=== PATIENT | female | born 2000 | race Caucasian/White ===

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

== ENCOUNTER 2023-03-21 12:43 | Emergency (ER) | payer OTHER, SELFPAY ==
[~2023-03-21] VITALS: Ht 149.9 cm; Wt 74.4 kg
[2023-03-21 14:06] VITALS: BP 116/74; TEMP 98; O2SAT 99
== END 2023-03-21 14:07 | disposition home or self-care (01) ==
LOC: M ED 12:43
DX: F32.A Depression, unspecified (principal)

== ENCOUNTER 2023-03-28 03:27 | Inpatient (IN) | payer BC, SELFPAY ==
[~2023-03-28] VITALS: Ht 149.9 cm; Wt 81.8 kg
[2023-03-28 04:13] LABS: HEMATOCRIT 39.7 % (36.0-47.0); HEMOGLOBIN 13.2 g/dl (12.0-15.5); MEAN CORPUSCULAR HEMOGLOBIN 27.5 pg (27.0-33.0); MEAN CORPUSCULAR HGB CONC 33.2 g/dl (32.0-36.5); MEAN CORPUSCULAR VOLUME 82.7 fl (80.0-96.0); PLATELET COUNT, AUTOMATED 463 10^3/uL (150-450); WHITE BLOOD COUNT 9.6 10^3/uL (4.0-10.0)
[2023-03-28 04:28] LABS: ETHYL ALCOHOL (ETHANOL) < 0.003 % (0.000-0.010)
[2023-03-28 04:30] LABS: SALICYLATE LEVEL < 3.0 MG/DL (<30)
[2023-03-28 04:31] LABS: ALBUMIN 4.1 G/DL (3.2-5.2); ALKALINE PHOSPHATASE 102 U/L (46-116); ALT/SGPT 16 U/L (7.0-40); AST/SGOT 11 U/L (<34); BILIRUBIN,DIRECT 0.1 MG/DL (<0.4); BILIRUBIN,TOTAL 0.3 MG/DL (0.3-1.2); BLOOD UREA NITROGEN 10 MG/DL (9-23); CALCIUM LEVEL 9.4 MG/DL (8.5-10.1); CARBON DIOXIDE LEVEL 26 MMOL/L (20-31); CHLORIDE LEVEL 104 MMOL/L (98-107); CREATININE FOR GFR 0.63 MG/DL (0.55-1.30); GLOMERULAR FILTRATION RATE > 60.0 (>60); GLUCOSE, FASTING 97 MG/DL (60-100); POTASSIUM SERUM 3.7 MMOL/L (3.5-5.1); SODIUM LEVEL 140 MMOL/L (136-145); TOTAL PROTEIN 7.7 G/DL (5.7-8.2)
[2023-03-28 04:33] LABS: THYROID STIMULATING HORMONE 1.976 uIU/ML (0.55-4.78)
[2023-03-28 04:36] LABS: HCG, SERUM QUALITATIVE NEGATIVE (NEGATIVE)
[2023-03-28 04:39] LABS: BARBITURATES URINE NEGATIVE (NEGATIVE); COCAINE METABOLITE URINE NEGATIVE (NEGATIVE)
[2023-03-28 04:40] LABS: AMPHETAMINES LEVEL URINE NEGATIVE (NEGATIVE); BENZODIAZEPINES URINE NEGATIVE (NEGATIVE); CANNABINOIDS URINE NEGATIVE (NEGATIVE); METHADONE URINE NEGATIVE (NEGATIVE); OPIATES URINE NEGATIVE (NEGATIVE); PHENCYCLIDINE URINE NEGATIVE (NEGATIVE)
[2023-03-28] MEDS ORDERED: HOME MED LIST COMPLETE! XX SCH (06:50)
[2023-03-28] MEDS ORDERED: MAALOX 30 ML SUSP *UDC PO PRN (18:25)
[2023-03-28] MEDS ORDERED: diphenhydrAMINE 25MG CAP PO PRN (18:25)
[2023-03-28] MEDS ORDERED: IBUPROFEN 400MG TAB PO PRN (18:25)
[2023-03-28] MEDS ORDERED: traZODone 50 MG TAB PO PRN (18:25)
[2023-03-28] MEDS ORDERED: MOM 30ML SUSPENSION UDC PO PRN (18:25)
[2023-03-28] MEDS ORDERED: ACETAMINOPHEN TAB 650MG DOSE (2X325MG) PO PRN (18:25)
[2023-03-28 21:14] VITALS: BP 116/70; TEMP 98.2; O2SAT 98
[2023-03-29 06:04] VITALS: BP 123/74; TEMP 97.4; O2SAT 99
[2023-03-29] MEDS: CitaloPRAM (CeleXA) 20 MG TAB PO SCH (09:17)
[2023-03-29] MEDS ORDERED: INFLUENZA QUADRIVALENT PF VACCINE 0.5ML SYRINGE IM.IMMUN ONE (10:00)
[2023-03-29 18:00] VITALS: BP 102/50; TEMP 98.4
[2023-03-30 06:28] VITALS: BP 131/89; TEMP 98.5; O2SAT 97
[2023-03-30] MEDS: CitaloPRAM (CeleXA) 20 MG TAB PO SCH (08:34)
[2023-03-30 16:01] VITALS: BP 136/81; TEMP 97.9; O2SAT 98
[2023-03-31 06:16] VITALS: BP 111/74; TEMP 98.8; O2SAT 96
[2023-03-31] MEDS ORDERED: CELE20TA PO (07:57)
[2023-03-31] MEDS: CitaloPRAM (CeleXA) 20 MG TAB PO SCH (08:17)
== END 2023-03-31 11:21 | disposition home or self-care (01) | DRG 754 ==
LOC: M ED 03:27 → M ED INP 18:21 → M PSY 21:14
PROVIDERS: ADMIT Student in an Organized Health Care Education/Training Program; ATTEND Student in an Organized Health Care Education/Training Program
DX: F32.A Depression, unspecified (principal); F79 Unspecified intellectual disabilities; R45.851 Suicidal ideations; F17.210 Nicotine dependence, cigarettes, uncomplicated

== ENCOUNTER 2023-12-02 23:41 | Emergency (ER) | payer SELFPAY ==
[~2023-12-02] VITALS: Ht 149.9 cm; Wt 80.7 kg
[~2023-12-02 23:41] MED LIST: CELE20TA PO
[2023-12-02 23:42] VITALS: BP 120/73; TEMP 97.9; O2SAT 99
== END 2023-12-03 02:26 | disposition left against medical advice (07) ==
LOC: M ED 23:41
DX: Z53.21 Procedure and treatment not carried out due to patient leaving prior to being seen by health care provider (principal)

== ENCOUNTER 2023-12-03 10:02 | Emergency (ER) | payer MEDICAID, SELFPAY ==
[~2023-12-03] VITALS: Ht 149.9 cm; Wt 78.8 kg
[2023-12-03 11:06] LABS: HCG, SERUM QUALITATIVE NEGATIVE (NEGATIVE)
[2023-12-03 11:58] VITALS: BP 166/75; TEMP 97.9; O2SAT 99
== END 2023-12-03 12:00 | disposition home or self-care (01) ==
LOC: M ED 10:02
DX: S83.91XA Sprain of unspecified site of right knee, initial encounter (principal); X50.0XXA Overexertion from strenuous movement or load, initial encounter; W19.XXXA Unspecified fall, initial encounter; F41.9 Anxiety disorder, unspecified; F32.A Depression, unspecified; Z79.899 Other long term (current) drug therapy; Y92.9 Unspecified place or not applicable; Y93.89 Activity, other specified; Y99.9 Unspecified external cause status

== ENCOUNTER 2023-12-12 15:47 | Emergency (ER) | payer MEDICAID, OTHER, SELFPAY ==
[~2023-12-12] VITALS: Ht 149.9 cm; Wt 77.2 kg
[2023-12-12] MEDS: traMADol 50 MG TAB PO ONE (16:57)
[2023-12-12 17:08] LABS: HCG, SERUM QUALITATIVE NEGATIVE (NEGATIVE)
[2023-12-12] MEDS ORDERED: TRAM50TA2 PO (17:45)
[2023-12-12] MEDS: IBUPROFEN 600MG TAB PO ONE (18:14)
[2023-12-12] MEDS: BOOSTRIX VACCINE (TETANUS/DIPHTH/ACEL. PERTUSSIS) 0.5ML SYR IM.IMMUN ONE (18:15)
[2023-12-12 18:33] VITALS: BP 144/82; TEMP 97.7; O2SAT 97
== END 2023-12-12 18:36 | disposition home or self-care (01) ==
LOC: M ED 15:47 → EDBD 15:47 → M ED 18:36
DX: S62.663A Nondisplaced fracture of distal phalanx of left middle finger, initial encounter for closed fracture (principal); Y92.410 Unspecified street and highway as the place of occurrence of the external cause; Y93.9 Activity, unspecified; Y99.9 Unspecified external cause status; Z79.899 Other long term (current) drug therapy; Z23 Encounter for immunization

== ENCOUNTER 2023-12-18 05:48 | Day surgery (SDC) | payer MEDICAID, SELFPAY ==
[~2023-12-18] VITALS: Ht 149.9 cm; Wt 77.3 kg
[~2023-12-18 05:48] MED LIST changes: +TRAM50TA2 PO
[2023-12-18] MEDS: LR 1,000 ML IV SCH (06:53)
[2023-12-18] MEDS ORDERED: MIDAZOLAM INJ 2MG/2ML VIAL As Ordered ONE (07:02)
[2023-12-18] MEDS ORDERED: LIDOCAINE 2% 100MG/5ML SDV (FOR ANES.) As Ordered ONE (07:06)
[2023-12-18] MEDS ORDERED: ONDANSETRON 4MG 2ML VIAL As Ordered ONE (07:11)
[2023-12-18] MEDS ORDERED: ACETAMINOPHEN 1000MG 100ML IV BAG As Ordered ONE (07:12)
[2023-12-18] MEDS ORDERED: KETOROLAC 60MG 2ML VIAL As Ordered ONE (07:12)
[2023-12-18] MEDS ORDERED: propofoL 200 MG/20 ML VIAL As Ordered ONE (07:12)
[2023-12-18] MEDS ORDERED: fentaNYL 100 MCG/2 ML INJECTION As Ordered ONE (07:14)
[2023-12-18] MEDS ORDERED: ceFAZolin 2 GM/D5W 50 ML IV BAG As Ordered ONE (07:35)
[2023-12-18] MEDS: ceFAZolin SOD 2 GM in IV 1 EA IV ONE (07:48)
[2023-12-18] MEDS ORDERED: dexmedeTOMIDine (4MCG/ML)200MCG/50ML BTL (PRECEDEX) As Ordered ONE (07:57)
[2023-12-18] MEDS: BACITRACIN OINTMENT 30GM TUBE As Ordered ONE (08:13)
[2023-12-18] MEDS ORDERED: LR 1,000 ML IV SCH (08:35)
[2023-12-18] MEDS ORDERED: ONDANSETRON 4MG 2ML VIAL IV PRN (08:35)
[2023-12-18] MEDS ORDERED: fentaNYL 100 MCG/2 ML INJECTION IV PRN (08:35)
[2023-12-18] MEDS ORDERED: oxyCODONE 5MG TAB PO PRN (08:35)
[2023-12-18] MEDS: HYDROMORPHONE HCL 0.5 MG/ 0.5 ML SYRINGE IV PRN (08:57)
[2023-12-18 09:50] VITALS: BP 134/83; TEMP 97.9; O2SAT 99
== END 2023-12-18 10:12 | disposition home or self-care (01) ==
LOC: M SDC 05:48
PROVIDERS: ATTEND Orthopaedic Surgery Hand Surgery
DX: S62.605A Fracture of unspecified phalanx of left ring finger, initial encounter for closed fracture (principal); W23.1XXA Caught, crushed, jammed, or pinched between stationary objects, initial encounter; Y92.89 Other specified places as the place of occurrence of the external cause; Y93.9 Activity, unspecified; F41.9 Anxiety disorder, unspecified; F32.A Depression, unspecified; F17.200 Nicotine dependence, unspecified, uncomplicated
CPT/HCPCS: 26727; 76000; 81025; J0131; J0665; J0690; J1100; J1170; J1885; J2250; J2405; J3010

== ENCOUNTER → 2023-12-21 | Outpatient (CLI) | payer MEDICAID | LOC: M SOG 09:18 | PROVIDERS: ATTEND Physician Assistant | DX: S62.635A Displaced fracture of distal phalanx of left ring finger, initial encounter for closed fracture (principal); Y93.9 Activity, unspecified; Y92.9 Unspecified place or not applicable ==

== ENCOUNTER 2023-12-29 14:26 | Emergency (ER) | payer MEDICAID | END 2023-12-29 15:05 | disposition left against medical advice (07) | LOC: M ED 14:26 | DX: Z53.21 Procedure and treatment not carried out due to patient leaving prior to being seen by health care provider (principal) ==

== ENCOUNTER → 2023-12-30 | Outpatient (CLI) | payer MEDICAID | LOC: M RAD 14:21 | PROVIDERS: ATTEND Orthopaedic Surgery | DX: S62.635D Displaced fracture of distal phalanx of left ring finger, subsequent encounter for fracture with routine healing (principal) ==

== ENCOUNTER → 2024-01-04 | Outpatient (CLI) | payer MEDICAID | LOC: M PLAIMG 10:50 | PROVIDERS: ATTEND Physician Assistant | DX: S62.635D Displaced fracture of distal phalanx of left ring finger, subsequent encounter for fracture with routine healing (principal); M79.89 Other specified soft tissue disorders ==

== ENCOUNTER 2024-05-27 15:07 | Emergency (ER) | payer MEDICAID, SELFPAY ==
[~2024-05-27] VITALS: Ht 149.9 cm; Wt 76.7 kg
[2024-05-27 15:12] VITALS: BP 134/76; TEMP 97.7; O2SAT 99
== END 2024-05-27 18:49 | disposition home or self-care (01) ==
LOC: M ED 15:07
DX: M25.561 Pain in right knee (principal); W00.0XXA Fall on same level due to ice and snow, initial encounter; Y92.410 Unspecified street and highway as the place of occurrence of the external cause; Y93.9 Activity, unspecified; Y99.9 Unspecified external cause status

== ENCOUNTER 2024-05-27 23:20 | Emergency (ER) | payer SELFPAY ==
[~2024-05-27] VITALS: Ht 149.9 cm; Wt 73.6 kg
[2024-05-28 00:12] LABS: BASO # 0.1 10^3/uL (0.0-0.2); BASO % 0.4 % (0.0-1.0); EOS # 0.1 10^3/uL (0.0-0.5); EOS % 0.6 % (0.0-3.0); HEMATOCRIT 39.6 % (36.0-47.0); LYMPH # 3.1 10^3/uL (1.5-5.0); LYMPH % 24.6 % (24.0-44.0); MEAN CORPUSCULAR HEMOGLOBIN 28.1 pg (27.0-33.0); MEAN CORPUSCULAR HGB CONC 32.8 g/dl (32.0-36.5); MEAN CORPUSCULAR VOLUME 85.7 fl (80.0-96.0); MONO # 0.6 10^3/uL (0.0-0.8); NEUTROPHILS # 8.7 10^3/uL (1.5-8.5); NEUTROPHILS % 69.1 % (36.0-66.0); PLATELET COUNT, AUTOMATED 427 10^3/uL (150-450); RED BLOOD COUNT 4.62 10^6/uL (4.00-5.40); WHITE BLOOD COUNT 12.5 10^3/uL (4.0-10.0)
[2024-05-28 00:31] LABS: AMPHETAMINES LEVEL URINE NEGATIVE (NEGATIVE); BARBITURATES URINE NEGATIVE (NEGATIVE); BENZODIAZEPINES URINE NEGATIVE (NEGATIVE); CANNABINOIDS URINE NEGATIVE (NEGATIVE); COCAINE METABOLITE URINE NEGATIVE (NEGATIVE); METHADONE URINE NEGATIVE (NEGATIVE); OPIATES URINE NEGATIVE (NEGATIVE); PHENCYCLIDINE URINE NEGATIVE (NEGATIVE)
[2024-05-28 00:33] LABS: ETHYL ALCOHOL (ETHANOL) < 0.003 % (0.000-0.010)
[2024-05-28 00:35] LABS: SALICYLATE LEVEL < 3.0 MG/DL (<30)
[2024-05-28 00:37] LABS: THYROID STIMULATING HORMONE 1.755 uIU/ML (0.55-4.78)
[2024-05-28 00:40] LABS: ALBUMIN 4.2 G/DL (3.2-5.2); ALKALINE PHOSPHATASE 101 U/L (35-104); ALT/SGPT 19 U/L (7.0-40); AST/SGOT 29 U/L (<34); BILIRUBIN,DIRECT < 0.1 MG/DL (<0.4); BILIRUBIN,TOTAL 0.3 MG/DL (0.3-1.2); BLOOD UREA NITROGEN 6 MG/DL (9-23); CALCIUM LEVEL 9.3 MG/DL (8.5-10.1); CARBON DIOXIDE LEVEL 25 MMOL/L (20-31); CHLORIDE LEVEL 105 MMOL/L (98-107); CREATININE FOR GFR 0.55 MG/DL (0.55-1.30); GLOMERULAR FILTRATION RATE > 60.0 (>60); GLUCOSE, FASTING 137 MG/DL (60-100); POTASSIUM SERUM 4.4 MMOL/L (3.5-5.1); SODIUM LEVEL 139 MMOL/L (136-145); TOTAL PROTEIN 7.6 G/DL (5.7-8.2)
[2024-05-28 01:05] VITALS: BP 131/62; TEMP 97.6; O2SAT 100
== END 2024-05-28 01:05 | disposition home or self-care (01) ==
LOC: M ED 23:20
DX: F43.0 Acute stress reaction (principal); F32.A Depression, unspecified

== ENCOUNTER 2024-10-03 14:49 | Emergency (ER) | payer SELFPAY ==
[~2024-10-03] VITALS: Ht 149.9 cm; Wt 73.5 kg
[2024-10-03 14:55] VITALS: BP 155/83; TEMP 98.4; O2SAT 99
[2024-10-03] MEDS: KETOROLAC 30 MG/ML 1ML VIAL IM ONE (18:27)
[2024-10-03] MEDS ORDERED: OXYC1TAB23 PO (18:49)
== END 2024-10-03 18:50 | disposition home or self-care (01) ==
LOC: M ED 14:49
DX: S52.122A Displaced fracture of head of left radius, initial encounter for closed fracture (principal); X50.0XXA Overexertion from strenuous movement or load, initial encounter; F17.200 Nicotine dependence, unspecified, uncomplicated; Z79.899 Other long term (current) drug therapy; Y92.007 Garden or yard of unspecified non-institutional (private) residence as the place of occurrence of the external cause; Y93.89 Activity, other specified; Y99.9 Unspecified external cause status
CPT/HCPCS: 29240; 73060; 73080; 96372; 99283; J1885